=== PATIENT | male | born 1955 | race Caucasian/White ===

== ENCOUNTER 2018-08-05 07:09 | Day surgery (SDC) | payer OTHER ==
[2018-08-05] MEDS ORDERED: PROPOFOL 20 ML ONE ×2 (07:16)
[2018-08-05 07:28] VITALS: BMI 33.3
[2018-08-05] MEDS ORDERED: LIDOCAINE HCL/PF 2% SDV 5ML VIAL ONE (08:32)
[2018-08-05 10:57] VITALS: TEMP 98.4
[2018-08-05 11:00] VITALS: BP 132/70; PULSE 66
== END 2018-08-05 10:05 | disposition home or self-care (01) ==
LOC: FASU-ENDO 07:09
PROVIDERS: ATTEND Internal Medicine Gastroenterology
PROC: 0DJD8ZZ Inspection of Lower Intestinal Tract, Via Natural or Artificial Opening Endoscopic (ICD-10-PCS; principal; 2018-08-05 08:46)
DX: Z86.010 Personal history of colon polyps (principal); K57.30 Diverticulosis of large intestine without perforation or abscess without bleeding